=== PATIENT | female | born 1955 | race African-American/Black ===

== ENCOUNTER 2018-04-08 13:46 | Outpatient (CLI) | payer BC ==
--- NOTE | 2018-04-08 15:07 | RAD ---
RADIOGRAPH RIGHT HAND THREE VIEWS: Date: 04-08-18 History: 62-year-old female with persistent post-traumatic right hand joint pain after fall last month. FINDINGS: There is no evidence of recent fracture. No dislocation. Mild to moderate degenerative changes at fif th PIP. 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 No high grade arthrosis. IMPRESSION: No fracture. POS: [facility]
== END 2018-04-08 13:47 | disposition home or self-care (01) ==
LOC: NAV RAD 13:46
PROVIDERS: ATTEND Family Medicine
DX: M79.641 Pain in right hand (principal)

== ENCOUNTER 2020-01-21 10:13 | Emergency (ER) | payer BC, OTHER ==
[2020-01-22 14:06] LABS: SARS-CoV-2 MS2 Positive; SARS-CoV-2 N Gene Negative; SARS-CoV-2 S Gene Negative; SARS-CoV-2 by NAA Not Detected (NotDetected); SARS-CoV-2 orf1ab Negative
== END 2020-01-21 11:07 | disposition home or self-care (01) ==
LOC: NAV ERS 10:13
DX: Z20.828 Contact with and (suspected) exposure to other viral communicable diseases (principal); E11.9 Type 2 diabetes mellitus without complications; E03.9 Hypothyroidism, unspecified; E78.5 Hyperlipidemia, unspecified; I10 Essential (primary) hypertension; Z86.73 Personal history of transient ischemic attack (TIA), and cerebral infarction without residual deficits; F41.9 Anxiety disorder, unspecified; F17.210 Nicotine dependence, cigarettes, uncomplicated; Z79.899 Other long term (current) drug therapy; Z79.84 Long term (current) use of oral hypoglycemic drugs; Z79.82 Long term (current) use of aspirin
CPT/HCPCS: 87635; 99283; U0003

== ENCOUNTER 2020-05-08 11:52 | Emergency (ER) | payer BC ==
--- NOTE | 2020-05-08 12:34 | RAD ---
I am: 1 view chest Left RIBS 3 views HISTORY: Pain and injury FINDINGS: 1. View chest Atherosclerosis of the aorta. Normal cardiac silhouette. Pulmonary vessels and hilum ar e normal. Costophrenic angles are clear. No consolidation or mass. No pneumothorax or acute osseous abnormalities Left rib series: No fracture, cortical irregularity or periosteal reaction. IMPRESSION: 1. Atherosclerosis. 2. No acute cardiac pulmonary process 2. No evidence of a left rib fracture
== END 2020-05-08 12:47 | disposition home or self-care (01) ==
LOC: NAV ERS 11:52
DX: S23.41XA Sprain of ribs, initial encounter (principal); E11.9 Type 2 diabetes mellitus without complications; E03.9 Hypothyroidism, unspecified; E78.5 Hyperlipidemia, unspecified; E78.00 Pure hypercholesterolemia, unspecified; I10 Essential (primary) hypertension; F41.9 Anxiety disorder, unspecified; F17.210 Nicotine dependence, cigarettes, uncomplicated; Z79.899 Other long term (current) drug therapy; W01.0XXA Fall on same level from slipping, tripping and stumbling without subsequent striking against object, initial encounter

== ENCOUNTER 2021-02-06 09:19 | Outpatient (CLI) | payer BC | END 2021-02-06 09:20 | disposition home or self-care (01) | LOC: NAV RAD 09:19 | PROVIDERS: ATTEND Family Medicine | DX: M62.830 Muscle spasm of back (principal); D25.9 Leiomyoma of uterus, unspecified; M47.816 Spondylosis without myelopathy or radiculopathy, lumbar region | CPT/HCPCS: 72100 ==

== ENCOUNTER 2021-11-15 16:30 | Emergency (ER) | payer BC, OTHER ==
[2021-11-15 17:30] LABS: #Basophils 0.1 thou/uL (0.0-0.2); #Eosinphils 0.1 thou/uL (0.0-0.7); #Lymphocytes 2.1 thou/uL (1.20-3.40); #Monocytes 0.3 thou/uL (0.11-0.59); #Neutrophils 4.6 thou/uL (1.40-6.50); %Eosinophils 1.5 % (0.0-10.0); %Lymphocytes 29.7 % (21.0-51.0); %Monocytes 3.6 % (0.0-10.0); %Neutrophils 64.2 % (42.0-75.0); Hemoglobin 14.1 g/dL (12.0-16.0); Mean Corpuscular HGB CONC 30.2 g/dL (32.0-36.0); Mean Corpuscular Hemoglobin 26.3 pg (27.0-31.0); Mean Corpuscular Volume 87.2 fL (78.0-98.0); Mean Platelet Volume 8.5 fL (7.4-10.4); Platelet Count 374 thou/uL (130-400); RBC Distribution Width 13.7 % (11.5-14.5); Red Blood Cell (RBC) Count 5.34 mill/uL (4.20-5.40); White Blood Cell (WBC) Count 7.2 thou/uL (4.8-10.8)
[2021-11-15 18:11] LABS: ALT (SGPT) 15 U/L (8-55); AST (SGOT) 17 U/L (5-34); Albumin 4.3 g/dL (3.4-4.8); Alkaline Phosphatase 108 U/L (40-110); Anion Gap 20 mmol/L (10-20); BUN (Urea Nitrogen) 15 mg/dL (9.8-20.1); Bilirubin, Total 0.3 mg/dL (0.2-1.2); Calc. Creatinine Clearance 0 mL/min (70-130); Calcium 10.1 mg/dL (7.8-10.44); Carbon Dioxide 21 mmol/L (23-31); Chloride 104 mmol/L (98-107); Globulin 3.2 g/dL (2.4-3.5); Glucose 111 mg/dL (80-115); Potassium 3.8 mmol/L (3.5-5.1); Protein, Total 7.5 g/dL (5.8-8.1); Sodium 141 mmol/L (136-145)
== END 2021-11-15 18:30 | disposition home or self-care (01) ==
LOC: NAV ERS 16:30
DX: R42 Dizziness and giddiness (principal); E11.9 Type 2 diabetes mellitus without complications; E03.9 Hypothyroidism, unspecified; E78.5 Hyperlipidemia, unspecified; I10 Essential (primary) hypertension; F17.210 Nicotine dependence, cigarettes, uncomplicated
CPT/HCPCS: 70450; 71045; 80053; 83880; 84484; 85025; 93005; 94760

== ENCOUNTER 2022-06-25 09:37 | Outpatient (CLI) | payer BC, OTHER | END 2022-06-25 09:38 | disposition home or self-care (01) | LOC: NAV CT 09:37 | PROVIDERS: ATTEND Family Medicine | DX: R42 Dizziness and giddiness (principal); Z86.73 Personal history of transient ischemic attack (TIA), and cerebral infarction without residual deficits | CPT/HCPCS: 70450 ==

== ENCOUNTER 2023-09-09 11:20 | Outpatient (CLI) | payer MEDICARE | END 2023-09-09 11:21 | disposition home or self-care (01) | LOC: NAV RAD 11:20 | PROVIDERS: ATTEND Student in an Organized Health Care Education/Training Program | DX: M54.31 Sciatica, right side (principal); M16.11 Unilateral primary osteoarthritis, right hip ==

== ENCOUNTER 2023-12-02 12:27 | Emergency (ER) | payer MEDICARE ==
[2023-12-02] MEDS ORDERED: Atropine Sulfate 1 mg/10 ml Syringe ONE (12:58)
[2023-12-02 13:30] LABS: #Eosinphils 0.1 thou/uL (0.0-0.7); #Lymphocytes 1.1 thou/uL (1.20-3.40); #Monocytes 0.3 thou/uL (0.11-0.59); #Neutrophils 3.8 thou/uL (1.40-6.50); %Basophils 0.7 % (0.0-1.0); %Eosinophils 1.3 % (0.0-10.0); %Lymphocytes 20.4 % (21.0-51.0); %Monocytes 5.2 % (0.0-10.0); %Neutrophils 72.4 % (42.0-75.0); Hematocrit 37.7 % (36.0-47.0); Hemoglobin 11.3 g/dL (12.0-16.0); Mean Corpuscular HGB CONC 30.1 g/dL (32.0-36.0); Mean Corpuscular Hemoglobin 25.5 pg (27.0-31.0); Mean Corpuscular Volume 84.8 fl (78.0-98.0); Mean Platelet Volume 7.4 fL (7.4-10.4); Platelet Count 226 10x3/uL (130-400); RBC Distribution Width 12.9 % (11.5-14.5); Red Blood Cell (RBC) Count 4.45 mill/uL (4.20-5.40); White Blood Cell (WBC) Count 5.2 10x3/uL (4.8-10.8)
[2023-12-02] MEDS ORDERED: Sodium Chloride 0.9% 1,000 ML ONE (13:31)
[2023-12-02] MEDS ORDERED: Ondansetron PF 4 MG/2 ML Vial ONE (13:32)
[2023-12-02 13:45] LABS: Troponin I 0.013 ng/mL (< 0.028)
[2023-12-02] MEDS ORDERED: Acetaminophen 325 MG TAB ONE (14:26)
[2023-12-02 14:43] LABS: ALT (SGPT) 8 U/L (8-55); AST (SGOT) 11 U/L (5-34); Albumin 3.8 g/dL (3.4-4.8); Alkaline Phosphatase 112 U/L (40-110); Anion Gap 16 mmol/L (10-20); BUN (Urea Nitrogen) 16 mg/dL (9.8-20.1); Calc. Creatinine Clearance 0 mL/min (70-130); Carbon Dioxide 23 mmol/L (23-31); Chloride 101 mmol/L (98-107); Estimated GFR 39; Globulin 2.9 g/dL (2.4-3.5); Glucose 335 mg/dL (80-115); Lipase 21 U/L (8-78); Potassium 3.8 mmol/L (3.5-5.1); Protein, Total 6.7 g/dL (5.8-8.1); Sodium 136 mmol/L (136-145)
[2023-12-02 14:57] LABS: Alcohol Less than 10.0 mg/dL (Less than 10)
[2023-12-02] MEDS ORDERED: Levothyroxine Sodium 100 MCG TAB PO SCH (18:00)
== END 2023-12-02 18:33 | disposition short-term general hospital (02) ==
LOC: NAV ERS 12:27
DX: S39.012A Strain of muscle, fascia and tendon of lower back, initial encounter (principal); E03.9 Hypothyroidism, unspecified; R40.0 Somnolence; R11.2 Nausea with vomiting, unspecified; D64.9 Anemia, unspecified; I10 Essential (primary) hypertension; F17.210 Nicotine dependence, cigarettes, uncomplicated; W01.0XXA Fall on same level from slipping, tripping and stumbling without subsequent striking against object, initial encounter
CPT/HCPCS: 70450; 71045; 72100; 80307; 83605; 83690; 84484; 93005; J0461; J2405; J7050; 80053; 84443; 85025; 96361; 96374